=== PATIENT | female | born 1975 | race Caucasian/White ===

== ENCOUNTER 2020-11-19 18:43 | Emergency (ER) | payer MEDICAID ==
[~2020-11-19] VITALS: Ht 162.6 cm; Wt 121.4 kg
[2020-11-19 18:53] VITALS: TEMP 98.4
[2020-11-19 21:20] LABS: BASO # 0.1 (0.0-0.2); BASO % 0.5 % (0.0-2.0); EOS # 0.4 (0.0-0.7); EOS % 3.1 % (0-4.0); GRAN % 62.2 % (42.2-75.2); HEMATOCRIT 43.5 % (37.0-47.0); HEMOGLOBIN 14.3 g/dl (12.5-16.0); LYMPH # 3.4 (1.2-3.4); LYMPH % 26.7 % (20.0-51.0); MEAN CELL VOLUME 86 fl (80.0-100.0); MEAN CORPUSCULAR HEMOGLOBIN 28 pg (27.0-31.0); MEAN CORPUSCULAR HGB CONC 33 g/dl (33.0-37.0); MEAN PLATELET VOLUME 8.7 fl (7.4-10.4); MONO # 0.9 (0.1-0.6); MONO % 6.7 % (1.7-9.3); PLATELET COUNT 448 K/mm3 (130-400); RED BLOOD COUNT 5.07 M/mm3 (4.10-5.30); REDCELL DISTRIBUTION WIDTH-CV 13.2 % (11.5-14.5)
[2020-11-19 21:34] LABS: ACETAMINOPHEN < 10 ug/mL (10-30); ALANINE AMINOTRANSFERASE 19 U/L (4-34); ALBUMIN 4.2 gm/dL (3.5-5.0); ALCOHOL(ethanol),MEDICAL < 10 mg/dL; ALKALINE PHOSPHATASE 86 U/L (50-136); ANION GAP 8 mmol/L (7-16); AST,SGOT 28 U/L (15-37); BILIRUBIN,TOTAL 0.3 mg/dL (0.0-1.0); BLOOD UREA NITROGEN 11 mg/dL (7-17); CALCIUM 9.1 mg/dL (8.4-10.2); CARBON DIOXIDE 27 mmol/L (22-30); CHLORIDE 101 mmol/L (98-107); CREATININE, serum 0.59 (0.52-1.25); GLUCOSE 107 mg/dL (74-106); SALICYLATE < 1.0 mg/dL; SODIUM 136 mmol/L (137-145); TOTAL PROTEIN 7.5 gm/dL (6.4-8.2)
[2020-11-19 21:53] LABS: COLLECTION METHOD CLEAN CATCH
[2020-11-19 22:01] LABS: MUCOUS Present /lpf; PH 5 (5-8); URINE APPEARANCE Hazy; URINE BACTERIA None Seen /hpf; URINE BILIRUBIN Negative (NEGATIVE); URINE BLOOD Negative (NEGATIVE); URINE COLOR Yellow; URINE GLUCOSE Negative (NEGATIVE); URINE KETONE Negative (NEGATIVE); URINE LEUKOCYTE ESTERASE Negative (NEGATIVE); URINE NITRATE Negative (NEGATIVE); URINE PROTEIN(semi-quant) Negative (NEGATIVE); URINE RBC 0-2 /hpf; URINE UROBILINOGEN Negative (NEGATIVE)
[2020-11-19 22:09] LABS: TRICYCLIC ANTIDEPRESS URINE NEGATIVE
[2020-11-20 00:09] VITALS: BP 148/91; PULSE 83
== END 2020-11-20 00:09 | disposition home or self-care (01) ==
LOC: COL.ER 18:43
PROVIDERS: Nurse Practitioner
DX: F41.9 Anxiety disorder, unspecified (principal); R44.3 Hallucinations, unspecified

== ENCOUNTER 2021-08-01 02:32 | Emergency (ER) | payer MEDICAID ==
[~2021-08-01] VITALS: Ht 162.6 cm; Wt 119.5 kg
[2021-08-01 03:35] LABS: ALBUMIN 3.7 gm/dL (3.5-5.0); ANION GAP 12 mmol/L (7-16); BLOOD UREA NITROGEN 12 mg/dL (7-19); CALCIUM 9.3 mg/dL (8.4-10.2); CARBON DIOXIDE 23 mmol/L (22-29); CHLORIDE 106 mmol/L (98-107); CREATININE, serum 0.75 mg/dL (0.57-1.11); GLUCOSE 129 mg/dL (70-99); POTASSIUM 3.8 mmol/L (3.5-4.5); SODIUM 141 mmol/L (136-145)
[2021-08-01 04:10] LABS: TROPONIN-I < 0.010 ng/mL (0.00-0.033)
[2021-08-01 04:34] LABS: PHOSPHOROUS 2.9 mg/dL (2.3-4.7)
[2021-08-01 05:10] VITALS: BP 14/81; PULSE 74; TEMP 98
== END 2021-08-01 05:10 | disposition home or self-care (01) ==
LOC: COL.ER 02:32
PROVIDERS: Emergency Medicine
DX: I10 Essential (primary) hypertension (principal)